=== PATIENT | female | born 1980 | race American Indian/Alaskan Native ===

== ENCOUNTER 2017-02-26 12:00 | Emergency (ER) | payer OTHER, MEDICAID ==
[2017-02-26 12:12] VITALS: BP 133/74
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
[2017-02-26] MEDS ORDERED: NORCO 5/325 PO ONE (12:41)
[2017-02-26] MEDS ORDERED: FLEXERIL PO ONE (13:06)
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
== END 2017-02-26 14:48 | disposition home or self-care (01) ==
LOC: ED 12:00
DX: M54.5 Low back pain (principal); V49.49XA Driver injured in collision with other motor vehicles in traffic accident, initial encounter; X58.XXXA Exposure to other specified factors, initial encounter; Y93.89 Activity, other specified; Y92.89 Other specified places as the place of occurrence of the external cause; Y99.8 Other external cause status
CPT/HCPCS: 72040; 72100; 81025